=== PATIENT | male | born 1990 | race Caucasian/White ===

== ENCOUNTER 2018-04-27 01:58 | Emergency (ER) | payer SELFPAY ==
[~2018-04-27] VITALS: Ht 170.2 cm; Wt 70.5 kg
[2018-04-27 02:06] VITALS: BP 137/82
== END 2018-04-27 03:30 | disposition left against medical advice (07) ==
LOC: EMS 01:59
DX: M54.5 Low back pain (principal); Z53.21 Procedure and treatment not carried out due to patient leaving prior to being seen by health care provider